=== PATIENT | female | born 1945 | race Two or more races ===

== ENCOUNTER → 2018-04-20 | Outpatient (CLI) | payer OTHER ==
[~2018-04-20] MED LIST: ALPHAGAN P5 M1 OP; ATORVASTATIN CA40 MG PO; COZAAR50 MG PO; LUMIGAN2.5 M1 OP; SYNTH PO
== END | disposition home or self-care (01) ==
LOC: MAMO-SONO 10:10
DX: Z12.31 Encounter for screening mammogram for malignant neoplasm of breast (principal); Z87.898 Personal history of other specified conditions; N63.10 Unspecified lump in the right breast, unspecified quadrant; N63.20 Unspecified lump in the left breast, unspecified quadrant

== ENCOUNTER 2018-05-06 08:40 | Emergency (ER) | payer OTHER ==
[~2018-05-06] VITALS: Ht 165.1 cm; Wt 117.9 kg
[2018-05-06] MEDS ORDERED: ASA81 MG (09:04)
== END 2018-05-07 06:32 | disposition home or self-care (01) ==
LOC: ER 08:40
DX: R06.02 Shortness of breath (principal); R05 Cough; J44.9 Chronic obstructive pulmonary disease, unspecified; I10 Essential (primary) hypertension; J11.1 Influenza due to unidentified influenza virus with other respiratory manifestations

== ENCOUNTER 2019-05-02 10:46 | Outpatient (CLI) | payer OTHER ==
[~2019-05-02 10:46] MED LIST changes: +ASA81 MG
== END 2019-05-02 11:08 | disposition home or self-care (01) ==
LOC: MAMO-SONO 10:46
DX: Z12.31 Encounter for screening mammogram for malignant neoplasm of breast (principal); Z87.898 Personal history of other specified conditions

== ENCOUNTER 2019-05-31 08:55 | Outpatient (CLI) | payer OTHER | END 2019-05-31 08:56 | disposition home or self-care (01) | LOC: RAD 08:55 | DX: I15.8 Other secondary hypertension (principal); I10 Essential (primary) hypertension ==

== ENCOUNTER 2020-03-13 11:21 | Outpatient (CLI) | payer OTHER | END 2020-03-13 11:31 | disposition home or self-care (01) | LOC: EKG 11:21 | PROVIDERS: ATTEND Ophthalmology | DX: I15.8 Other secondary hypertension (principal); I10 Essential (primary) hypertension; H40.1112 Primary open-angle glaucoma, right eye, moderate stage ==

== ENCOUNTER 2020-11-18 12:22 | Outpatient (CLI) | payer OTHER | END 2020-11-18 15:02 | disposition home or self-care (01) | LOC: MAMO-SONO 12:22 | PROVIDERS: ATTEND Internal Medicine | DX: Z12.31 Encounter for screening mammogram for malignant neoplasm of breast (principal); D24.1 Benign neoplasm of right breast; D24.2 Benign neoplasm of left breast; N64.59 Other signs and symptoms in breast; I10 Essential (primary) hypertension; E03.8 Other specified hypothyroidism; E55.9 Vitamin D deficiency, unspecified; M54.5 Low back pain; E78.89 Other lipoprotein metabolism disorders; E66.8 Other obesity; M89.8X8 Other specified disorders of bone, other site; E66.01 Morbid (severe) obesity due to excess calories ==

== ENCOUNTER → 2020-12-11 14:09 | Outpatient (CLI) | payer OTHER | END | disposition home or self-care (01) | LOC: NUCLEAR 14:00 | PROVIDERS: ATTEND Internal Medicine | DX: M81.0 Age-related osteoporosis without current pathological fracture (principal) ==

== ENCOUNTER 2021-05-20 14:21 | Outpatient (CLI) | payer OTHER | END 2021-05-20 14:26 | disposition home or self-care (01) | LOC: RAD 14:21 | PROVIDERS: ATTEND Ophthalmology | DX: I10 Essential (primary) hypertension (principal); I15.8 Other secondary hypertension ==

== ENCOUNTER 2022-03-05 10:46 | Outpatient (CLI) | payer OTHER | END 2022-03-05 10:54 | disposition home or self-care (01) | LOC: MAMO-SONO 10:46 | PROVIDERS: ATTEND Internal Medicine | DX: Z01.810 Encounter for preprocedural cardiovascular examination (principal); Z12.31 Encounter for screening mammogram for malignant neoplasm of breast; I10 Essential (primary) hypertension; Z13.820 Encounter for screening for osteoporosis; E78.5 Hyperlipidemia, unspecified; M75.121 Complete rotator cuff tear or rupture of right shoulder, not specified as traumatic; E55.9 Vitamin D deficiency, unspecified; E03.9 Hypothyroidism, unspecified; H40.10X1 Unspecified open-angle glaucoma, mild stage ==

== ENCOUNTER 2022-10-08 09:49 | Outpatient (CLI) | payer OTHER ==
[~2022-10-08 09:49] MED LIST changes: +SYNTHROID75 MCG
== END 2022-10-08 09:54 | disposition home or self-care (01) ==
LOC: RAD 09:49
PROVIDERS: ATTEND Internal Medicine
DX: M54.50 Low back pain, unspecified (principal); E66.01 Morbid (severe) obesity due to excess calories; E66.8 Other obesity; E55.9 Vitamin D deficiency, unspecified

== ENCOUNTER 2023-03-17 09:34 | Outpatient (CLI) | payer OTHER | END 2023-03-17 09:41 | disposition home or self-care (01) | LOC: MAMO-SONO 09:34 | PROVIDERS: ATTEND Internal Medicine | DX: N60.11 Diffuse cystic mastopathy of right breast (principal); Z12.31 Encounter for screening mammogram for malignant neoplasm of breast ==

== ENCOUNTER 2023-10-19 11:38 | Outpatient (CLI) | payer OTHER | END 2023-10-19 11:52 | disposition home or self-care (01) | LOC: RAD 11:38 | PROVIDERS: ATTEND Orthopaedic Surgery | DX: M25.561 Pain in right knee (principal); M25.562 Pain in left knee | CPT/HCPCS: 73721 ==

== ENCOUNTER 2023-12-21 07:34 | Emergency (ER) | payer OTHER ==
[~2023-12-21] VITALS: Ht 165.1 cm; Wt 108.9 kg
[2023-12-21] MEDS ORDERED: COZAAR100 MG PO (07:44)
[2023-12-21] MEDS ORDERED: KETOROLAC TROMETHAMINE 60 MG VIAL IM ONE (08:30)
== END 2023-12-21 09:38 | disposition home or self-care (01) ==
LOC: ER 07:34
DX: M72.2 Plantar fascial fibromatosis (principal); M79.671 Pain in right foot; I10 Essential (primary) hypertension; E03.8 Other specified hypothyroidism
CPT/HCPCS: 73630; 96372; 99283; J1885

== ENCOUNTER 2024-06-08 09:33 | Outpatient (CLI) | payer OTHER ==
[~2024-06-08 09:33] MED LIST changes: +COZAAR100 MG PO
== END 2024-06-08 09:36 | disposition home or self-care (01) ==
LOC: RAD 09:33
PROVIDERS: ATTEND Internal Medicine
DX: E66.01 Morbid (severe) obesity due to excess calories (principal); E66.8 Other obesity; E55.9 Vitamin D deficiency, unspecified; M17.11 Unilateral primary osteoarthritis, right knee; M67.51 Plica syndrome, right knee

== ENCOUNTER → 2024-10-17 11:10 | Outpatient (CLI) | payer OTHER ==
[~2024-10-17 11:10] MED LIST changes: +BETHANECHOL CHL50 MG; +BRIMONIDINE TART5 ML; +DORZOLAMIDE HCL10 ML; +ELIQUIS5 MG PO; +GABAPENTIN100 MG PO; +HYDROCHLOROTH12.5 M2; +LATANOPROST2.5 ML; +NORFLEX100MG PO; +OXYC1TAB9 PO; +VITAMIN D31250 MCG
[2024-10-17 11:39] LABS: HEMATOCRIT 37.7 % (36.0-45.00); HEMOGLOBIN 12.7 g/dL (12.0-15.00); MEAN CELL VOLUME 96.2 fL (80.00-100.00); MEAN CORPUSCULAR HEMOGLOBIN 32.3 pg (27.00-32.0); MEAN CORPUSCULAR HGB CONC 33.6 g/dl (32.0-36.0); PLATELET COUNT 233 K/uL (150-450); RED BLOOD COUNT 3.92 M/uL (4.00-6.00); RED CELL DISTRIBUTION WIDTH 13.3 % (11.5-14.5)
[2024-10-17 12:11] LABS: INR 1.03; PROTHROMBIN TIME 11.2 SECONDS (9.0-11.5)
[2024-10-17 12:44] LABS: ALBUMIN 3.6 gm/dL (3.4-5.0); BILIRUBIN TOTAL 0.5 mg/dL (0.3-1.2); CALCIUM 9.4 mg/dL (8.5-10.1); CREATININE SERUM 1.21 mg/dL (0.55-1.02); GFR 42.7; GLOBULINA 3.5 G/DL (2.4-3.5); POTASSIUM 4.84 mEq/L (3.5-5.1); TOTAL PROTEIN 7.1 gm/dL (6.4-8.2)
[2024-10-18 10:28] LABS: PH,URINE 5.5 (5.0-8.0); URINE APPEARANCE Clear; URINE BILIRRUBIN Negative (NEGATIVE); URINE BLOOD Negative; URINE COLOR Yellow; URINE GLUCOSE Negative (NEGATIVE); URINE KETONE Negative (NEGATIVE); URINE LEUKOCYTE Negative; URINE NITRATE Negative; URINE PROTEIN Negative (NEGATIVE); URINE UROBILINOGEN 0.2 E.U./dl
[2024-10-18 10:40] LABS: URINE EPITHELIAL CELLS 2.5 uL (0.0-38.8); URINE RBC 2.5 uL (0.0-20.8); URINE WBC 10.5 uL (0.0-23.2)
[2024-10-18 10:41] LABS: URINE BACTERIA > 9821.5 uL (0.0-1933)
== END | disposition home or self-care (01) ==
LOC: LAB 11:10
PROVIDERS: ATTEND Orthopaedic Surgery
DX: I10 Essential (primary) hypertension (principal); R07.9 Chest pain, unspecified; D68.9 Coagulation defect, unspecified; E78.2 Mixed hyperlipidemia; N39.0 Urinary tract infection, site not specified

== ENCOUNTER 2024-11-02 10:30 | Inpatient (IN) | payer OTHER ==
[~2024-11-02] VITALS: Ht 165.1 cm; Wt 106.6 kg
[~2024-11-02 10:30] MED LIST changes: -BETHANECHOL CHL50 MG; -BRIMONIDINE TART5 ML; -DORZOLAMIDE HCL10 ML; -ELIQUIS5 MG PO; -GABAPENTIN100 MG PO; -HYDROCHLOROTH12.5 M2; -LATANOPROST2.5 ML; -NORFLEX100MG PO; -OXYC1TAB9 PO; -VITAMIN D31250 MCG
[2024-11-02 11:21] VITALS: BP 145/77
[2024-11-07] MEDS ORDERED: KETOROLAC TROMETHAMINE 60 MG VIAL IM ONE (09:14)
[2024-11-07] MEDS ORDERED: TRANEXAMIC ACID 100MG/1ML (1000MG) AMPUL IV ONE (09:15)
[2024-11-07] MEDS ORDERED: CEFAZOLIN SODIUM 1,000 MG VIAL ONE (09:15)
[2024-11-07] MEDS ORDERED: VANCOMYCIN HCL 1,000 MG VIAL ONE (09:16)
[2024-11-07] MEDS ORDERED: OxyCODONE HCL/APAP UD (PERCOCET) PO PRN (09:45)
[2024-11-07] MEDS ORDERED: ONDANSETRON HCL 2 MG/ML VIAL IV PRN (09:45)
[2024-11-07] MEDS ORDERED: MORPHINE SULFATE 4 MG/ML VIAL IV ONE (11:00)
[2024-11-07] MEDS ORDERED: MORPHINE SULFATE 4 MG/ML CARTRIDGE IV SCH (12:00)
[2024-11-07] MEDS ORDERED: CEFAZOLIN SODIUM 1,000 MG VIAL IV SCH (12:00)
[2024-11-07 13:58] VITALS: BP 145/77
[2024-11-07 16:11] VITALS: BP 133/60
[2024-11-07 18:40] VITALS: BP 136/69
[2024-11-07] MEDS ORDERED: GABAPENTIN 100 MG CAPSULE PO SCH (21:00)
[2024-11-07] MEDS ORDERED: ORPHENADRINE CITRATE 100 MG TABLET PO SCH (21:00)
[2024-11-08] VITALS: BP 140/68
[2024-11-08 02:23] LABS: HEMATOCRIT 33.5 % (36.0-45.00); MEAN CELL VOLUME 97.6 fL (80.00-100.00); MEAN CORPUSCULAR HEMOGLOBIN 32.3 pg (27.00-32.0); MEAN CORPUSCULAR HGB CONC 33.1 g/dl (32.0-36.0); PLATELET COUNT 198 K/uL (150-450); RED BLOOD COUNT 3.43 M/uL (4.00-6.00); RED CELL DISTRIBUTION WIDTH 13.3 % (11.5-14.5)
[2024-11-08 02:26] LABS: HEMOGLOBIN 11.1 g/dL (12.0-15.00)
[2024-11-08] MEDS ORDERED: RIVAROXABAN 10 MG TAB PO SCH (09:00)
[2024-11-08 13:31] LABS: ALBUMIN 3.2 gm/dL (3.4-5.0); BILIRUBIN TOTAL 0.4 mg/dL (0.3-1.2); CALCIUM 8.5 mg/dL (8.5-10.1); CREATININE SERUM 1.06 mg/dL (0.55-1.02); GFR 49.75; POTASSIUM 4.4 mEq/L (3.5-5.1); TOTAL PROTEIN 6.2 gm/dL (6.4-8.2)
[2024-11-08] MEDS ORDERED: BRIMONIDINE TART5 ML (14:08)
[2024-11-08] MEDS ORDERED: LATANOPROST2.5 ML (14:08)
[2024-11-08] MEDS ORDERED: DORZOLAMIDE HCL10 ML (14:08)
[2024-11-08] MEDS ORDERED: HYDROCHLOROTH12.5 M2 (14:09)
[2024-11-08] MEDS ORDERED: VITAMIN D31250 MCG (14:09)
[2024-11-08] MEDS ORDERED: BETHANECHOL CHL50 MG (14:09)
[2024-11-08] MEDS ORDERED: SOD FERRIC GLUC COMPLX/SUCROSE 62.5 MG/5 ML AMPUL IV SCH (15:30)
[2024-11-08] MEDS ORDERED: VITAMIN B COMPLEX 1 EACH PO SCH (17:00)
[2024-11-08] MEDS ORDERED: Cyanocobalamin/Mecobalamin 1 TAB.SL SL SCH (17:00)
[2024-11-08] MEDS ORDERED: ATORVASTATIN CALCIUM 40 MG TABLET PO SCH (20:45)
[2024-11-08] MEDS ORDERED: LOSARTAN POTASSIUM 100 MG TABLET PO SCH (20:45)
[2024-11-08] MEDS ORDERED: HYDROCHLOROTHIAZIDE 25 MG TABLET PO SCH (20:45)
[2024-11-09] VITALS: BP 150/70
[2024-11-09 01:34] LABS: HEMATOCRIT 33.2 % (36.0-45.00); MEAN CELL VOLUME 98.3 fL (80.00-100.00); MEAN CORPUSCULAR HEMOGLOBIN 32.5 pg (27.00-32.0); MEAN CORPUSCULAR HGB CONC 33.1 g/dl (32.0-36.0); PLATELET COUNT 195 K/uL (150-450); RED BLOOD COUNT 3.37 M/uL (4.00-6.00); RED CELL DISTRIBUTION WIDTH 13.6 % (11.5-14.5)
[2024-11-09] MEDS ORDERED: LEVOTHYROXINE SODIUM 75 MCG TABLET PO SCH (06:00)
[2024-11-09 08:46] VITALS: BP 135/65
[2024-11-09] MEDS ORDERED: APIXABAN 5 MG TABLET PO SCH (09:00)
[2024-11-09] MEDS ORDERED: NORFLEX100MG PO (11:54)
[2024-11-09] MEDS ORDERED: ELIQUIS5 MG PO (11:54)
[2024-11-09] MEDS ORDERED: GABAPENTIN100 MG PO (11:55)
[2024-11-09] MEDS ORDERED: OXYC1TAB9 PO (11:56)
== END 2024-11-09 17:33 | disposition home or self-care (01) | DRG 470 ==
LOC: O/R 11-07 06:53 → OB/GYN 11-07 06:53 → SURH 11-07 08:15 → OB/GYN 11-07 12:55
PROVIDERS: ADMIT Orthopaedic Surgery; ATTEND Orthopaedic Surgery
PROC: 0SRC0JZ Replacement of Right Knee Joint with Synthetic Substitute, Open Approach (ICD-10-PCS; principal; 2024-11-07 08:15)
DX: M17.11 Unilateral primary osteoarthritis, right knee (principal); D62 Acute posthemorrhagic anemia; M85.661 Other cyst of bone, right lower leg; I10 Essential (primary) hypertension; E03.9 Hypothyroidism, unspecified; E78.5 Hyperlipidemia, unspecified

== ENCOUNTER 2025-03-02 09:17 | Outpatient (CLI) | payer OTHER ==
[~2025-03-02 09:17] MED LIST changes: +BETHANECHOL CHL50 MG; +BRIMONIDINE TART5 ML; +DORZOLAMIDE HCL10 ML; +ELIQUIS5 MG PO; +GABAPENTIN100 MG PO; +HYDROCHLOROTH12.5 M2; +LATANOPROST2.5 ML; +NORFLEX100MG PO; +OXYC1TAB9 PO; +VITAMIN D31250 MCG
== END 2025-03-02 09:20 | disposition home or self-care (01) ==
LOC: RAD 09:17
PROVIDERS: ATTEND Orthopaedic Surgery
DX: M25.561 Pain in right knee (principal); M25.562 Pain in left knee

== ENCOUNTER 2025-04-02 12:50 | Outpatient (CLI) | payer OTHER | END 2025-04-02 12:52 | disposition home or self-care (01) | LOC: RAD 12:50 | PROVIDERS: ATTEND Orthopaedic Surgery | DX: M25.572 Pain in left ankle and joints of left foot (principal) ==

== ENCOUNTER 2025-04-17 09:45 | Emergency (ER) | payer OTHER ==
[~2025-04-17] VITALS: Ht 162.6 cm; Wt 104.3 kg
[2025-04-17] MEDS ORDERED: METOPROLOL SUCC25 MG (10:13)
[2025-04-17 11:19] LABS: BASO % 0.4 % (0.1-1.2); EOS # 0.09 (0.04-0.54); EOS % 1.6 % (0.7-7.0); LYMPH # 0.76 (1.18-3.74); LYMPH % 13.3 % (19.3-53.1); MEAN PLATELET VOLUME 9.70 fl (9.4-12.4); MONO # 0.68 (0.24-0.82); MONO % 11.9 % (4.7-12.5); NEUT # 4.13 (1.56-6.13); NEUT % 72.3 % (34.0-71.1); RED CELL DISTRIBUTION WIDTH 14.6 % (11.6-14.4)
[2025-04-17 11:51] LABS: ALT/SGPT 80.0 U/L (12-78); AST/SGOT 64.0 U/L (15-37); BILIRUBIN TOTAL 0.82 mg/dL (0.3-1.2); BUN CREA RATIO 36.0 (7.0-25.0); CREATININE SERUM 1.3 mg/dL (0.55-1.02); GFR 39.21; GLOBULINA 3.4 G/DL (2.4-3.5); GLUCOSE FASTING 92.0 mg/dL (65-100); OSMOLALITY SERUM 297.0 MOSM/KG (275-295)
== END 2025-04-17 16:19 | disposition home or self-care (01) ==
LOC: ER 09:45
PROVIDERS: Preventive Medicine Public Health & General Preventive Medicine
DX: G62.9 Polyneuropathy, unspecified (principal)

== ENCOUNTER 2025-05-14 10:39 | Outpatient (CLI) | payer OTHER ==
[~2025-05-14 10:39] MED LIST changes: +METOPROLOL SUCC25 MG
== END 2025-05-14 10:40 | disposition home or self-care (01) ==
LOC: NUCLEAR 10:39
PROVIDERS: ATTEND Orthopaedic Surgery
DX: M79.605 Pain in left leg (principal)

== ENCOUNTER 2025-07-09 10:40 | Outpatient (CLI) | payer OTHER | END 2025-07-09 10:46 | disposition home or self-care (01) | LOC: MAMO-SONO 10:40 | PROVIDERS: ATTEND Internal Medicine | DX: N60.11 Diffuse cystic mastopathy of right breast (principal); N60.12 Diffuse cystic mastopathy of left breast; Z12.31 Encounter for screening mammogram for malignant neoplasm of breast; Z12.11 Encounter for screening for malignant neoplasm of colon; M85.661 Other cyst of bone, right lower leg; M67.51 Plica syndrome, right knee; E78.5 Hyperlipidemia, unspecified; E03.9 Hypothyroidism, unspecified; E55.9 Vitamin D deficiency, unspecified; I10 Essential (primary) hypertension; E78.9 Disorder of lipoprotein metabolism, unspecified; I49.9 Cardiac arrhythmia, unspecified; M77.30 Calcaneal spur, unspecified foot ==